=== PATIENT | female | born 1940 | race Caucasian/White ===

== ENCOUNTER 2018-04-30 12:57 | Emergency (ER) | payer MEDICARE, OTHER, SELFPAY ==
[2018-04-30 13:04] VITALS: BP 150/65; PULSE 58; RESP 16; TEMP 36.8; O2SAT 100; BMI 23.6
--- NOTE | 2018-04-30 13:08 | ED_ITS ---
HPI - Fall <SYED Fernández - Last Filed: 04/30/18 20:48> General Chief Complaint: Extremity Injury, Lower Stated Complaint: Ground level fall Time Seen by Provider: 04/30/18 13:07 Source: patient Mode of arrival: EMS Limitations: no limitations History of Present Illness HPI Narrative: 77-year-old female with history of high blood pressure and nonsmoker here for complaint of pain into her left ankle and right wrist/hand. She states that she was out walking earlier today when she rolled her left ankle causing pain and swelling to the left ankle causing her to fall she used her right hand to brace her fall she denies pain to the right wrist and hand. She denies any head injury. She reports that she has decreased ability to ambulate due to pain into the left ankle. Increased pain with weight-bearing and motion to the left ankle. She denies any other injuries or concerns at this point. Related Data Home Medications Medication Instructions Recorded Confirmed amlodipine [Norvasc] 5 mg PO QDAY #0 11/10/06 04/30/18 Vitamin B-12 1 tab PO Q DAY #0 11/07/11 04/30/18 aspirin 81 mg PO QDAY #0 11/07/11 04/30/18 multivitamin 1 tab PO DAILY #0 11/07/11 04/30/18 metoprolol tartrate 12.5 mg PO BID #0 10/21/17 04/30/18 Fish Oil 1 cap PO DAILY 04/30/18 04/30/18 flaxseed oil 1 cap PO DAILY 04/30/18 04/30/18 turmeric root extract 1 cap PO DAILY 04/30/18 04/30/18 Allergies Allergy/AdvReac Type Severity Reaction Status Date / Time Penicillins [PENICILLINS] Allergy Severe UNCONSCIOUS Unverified 12/03/17 11:48 doxycycline [DOXYCYCLINE] Allergy Intermediate JAUNDICED Unverified 12/03/17 11: 48 Review of Systems <SYED Fernández - Last Filed: 04/30/18 20:48> Constitutional Denies chills, Denies fever(s), Denies lethargy and Denies weakness ENT Ears, Nose, Mouth, and Throat: Denies change in voice, Denies neck pain and Denies sore throat Cardiovascular Denies chest pain, Denies irregular heart rhythm, Denies lightheadedness, Denies palpitations, Denies dyspnea, Denies dyspnea on exertion and Denies orthopnea Respiratory Denies cough, Denies dyspnea, Denies dyspnea on exertion and Denies wheezing Gastrointestinal Gastrointestinal: Denies abdominal pain, Denies change in bowel habits, Denies diarrhea, Denies nausea and Denies vomiting Genitourinary Denies hematuria, Denies flank pain, Denies urinary incontinence and Denies urinary urgency Musculoskeletal Denies neck pain Comments: Pain and swelling to left ankle. Pain into right wrist hand after ground level fall Integumentary/Breasts Denies pruritus, Denies erythema, Denies rash and Denies wounds Neurologic Denies confusion and Denies weakness Psychiatric Denies anxiety, Denies confusion, Denies depression, Denies homicidal ideation and Denies suicidal ideation Endocrine Denies palpitations Allergic/Immunologic Denies wheezing Exam <SYED Fernández - Last Filed: 04/30/18 20:48> Initial Vital Signs Initial Vital Signs: Vital Signs Temperature 98.3 F 04/30/18 13:04 Pulse Rate 58 L 04/30/18 13:04 Respiratory Rate 16 04/30/18 13:04 Blood Pressure 150/65 H 04/30/18 13:04 Pulse Oximetry 100 04/30/18 13:04 Const General: cooperative and well developed Nutritional Appearance: well nourished Orientation: alert, awake, oriented x3 and not confused [facility] Head: normal to inspection, normocephalic and atraumatic Mouth: oral mucosae normal and moist mucous membranes Eyes Conjunctivae: conjunctivae normal Sclera: sclerae normal Pupils: PERRL EOM: EOM intact bilaterally Neck Neck: normal visual inspection, trachea midline, No lymphadenopathy, No midline deformity and No JVD Lymphatic: No lymphedema Chest Chest: normal inspection of the chest Resp Effort & Inspection: normal respiratory effort, able to speak in complete sentences, no respiratory distress and no use of accessory muscles Auscultation: clear to auscultation bilaterally, no rales, no rhonchi and no wheezes Cardio Rate: regular rate Rhythm: regular rhythm Heart Sounds: no click, no gallops, no murmurs and no rubs Pulses: normal peripheral pulses GI Inspection: non-distended Palpation: soft, no hepatosplenomegaly, No guarding, No pulsatile mass and No tender Auscultation: normal bowel sounds Skin General: no rashes or lesions noted, No jaundice and No petechiae Neuro General: alert, oriented x3, gait normal and no focal motor deficits Speech: speech normal Extrem Other: Right wrist and hand no ecchymosis no swelling. No open lesions. Distal sensation is intact. Distal cap refill less than 2 sec. Distal range of motion is intact Left ankle with swelling over the lateral malleolus slight ecchymosis. No open lesions. Distal pulses are intact. Distal sensation is intact. Distal range of motion is intact <DO Ashley Hugo Last Filed: 05/05/18 07:32> Initial Vital Signs Initial Vital Signs: Vital Signs Temperature 98.3 F 04/30/18 13:04 Pulse Rate 58 L 04/30/18 13:04 Respiratory Rate 16 04/30/18 13:04 Blood Pressure 150/65 H 04/30/18 13:04 Pulse Oximetry 100 04/30/18 13:04 Course <SYED Fernádnez - Last Filed: 04/30/18 20:48> Orders Ordered: ED Orders 04/30/18 13:33 XR ankle LT min 3V Stat XR hand RT min 3V Stat XR wrist RT min 3V Stat Vital Signs - 8 hr 04/30/18 13:04 04/30/18 15:11 Temperature 98.3 F Pulse Rate 58 L 73 Respiratory Rate 16 16 Blood Pressure 150/65 H Blood Pressure [Left Arm] 142/78 H Pulse Oximetry 100 99 <DO Ashley Hugo Last Filed: 05/05/18 07:32> Orders Ordered: ED Orders 04/30/18 13:33 XR ankle LT min 3V Stat XR hand RT min 3V Stat XR wrist RT min 3V Stat Vital Signs - 8 hr 04/30/18 13:04 04/30/18 15:11 Temperature 98.3 F Pulse Rate 58 L 73 Respiratory Rate 16 16 Blood Pressure 150/65 H Blood Pressure [Left Arm] 142/78 H Pulse Oximetry 100 99 MDM - Fall <SYED Fernández Last Filed: 04/30/18 20:48> Imaging Data Left ankle: Radiologist's impression: [address] [address] XRay Report Signed Patient: Christianne Jones MR#: [id number] : 1940 Acct:[id number] Age/Sex: 77 / F Date of Service: 04/30/18 Loc: ED Accession Number: [id number] Procedure: XR ankle LT min 3V Ordering Provider: Anmol Jara PROCEDURE: XR ANKLE LT MIN 3V INDICATIONS: Pain to left ankle after ground level fall TECHNIQUE: 3 views of the ankle were acquired. COMPARISON: None. FINDINGS: Bones: No fractures or dislocations. Ankle mortise is normally aligned. No suspicious bony lesions. Soft tissues: No tibiotalar joint effusion. Achilles tendon appears normal. IMPRESSION: No trauma found. Dictated by: Abhi Estrada M.D. on 04/30/2018 at 14:14 Approved by: Abhi Estrada M.D. on 04/30/2018 at 14:15 Right hand : Radiologist's impression: [address] [address] XRay Report Signed Patient: Christianne Jones MR#: [id number] : 1940 Acct:[id number] Age/Sex: 77 / F Date of Service: 04/30/18 Loc: ED Accession Number: [id number] Procedure: XR hand RT min 3V Ordering Provider: Anmol Jara PROCEDURE: XR HAND RT MIN 3V INDICATIONS: Pain to right hand and wrist after ground level fall TECHNIQUE: 3 views of the hand(s) acquired. COMPARISON: None. FINDINGS: Bones: No fractures or dislocations. Carpal bones are normally aligned. No suspicious bony lesions. Soft tissues: No suspicious soft tissue calcifications. IMPRESSION: Mild arthritic change at the interphalangeal joints distally but no trauma found. Dictated by: Abhi Estrada M.D. on 04/30/2018 at 14:14 Approved by: Abhi Estrada M.D. on 04/30/2018 at 14:14 Right wrist: Radiologist's impression: [address] [address] XRay Report Signed Patient: Christianne Jones MR#: [id number] : 1940 Acct:[id number] Age/Sex: 77 / F Date of Service: 04/30/18 Loc: ED Accession Number: [id number] Procedure: XR wrist RT min 3V Ordering Provider: Amnol Jara PROCEDURE: XR WRIST RT MIN 3V INDICATIONS: Pain to right wrist and hand after ground level fall TECHNIQUE: 4 views of the wrist were acquired. COMPARISON: None. FINDINGS: Bones: No fractures or dislocations. No suspicious bony lesions. Scaphoid view: No trauma to the scaphoid is found. Soft tissues: No suspicious soft tissue calcifications. IMPRESSION: No osseous injury identified. Dictated by: Abhi Estrada M.D. on 04/30/2018 at 14:13 Approved by: Abhi Estrada M.D. on 04/30/2018 at 14:14 [facility] Narrative Medical decision making narrative: X-ray of the right wrist and hand were obtained was negative for any acute findings. X-ray of the left ankle was obtained and was also negative for any acute findings. Signs and symptoms presents as sprain to the left ankle and the right wrist. She is placed in a splint to both left ankle and the right wrist for comfort and support. Discussed ambulation with patient and offered a walker patient did not desire to use a walker she will rent to wheelchair for mobilization. Follow up with primary care provider next week for re-evaluation. [id number] ibuprofen as needed for any discomfort. Ice and elevation to painful areas to help with swelling. For any worsening symptoms return to the emergency room. Discharge Plan Departure Patient Disposition: Home Clinical Impression: Ankle sprain and strain, Right wrist sprain Discharge Date/Time: 04/30/18 15:15 Interventions: ED Discharge Assessment Last Done: 04/30/18 15:15 Instructions: DI for Wrist Sprain, DI for Ankle Sprain Activity Restrictions/Additional Instructions: X-rays of the right wrist and hand were obtained were negative for any fractures. X-rays of the left ankle was obtained and was also negative for any fractures. Signs and symptoms presents as sprain to the right wrist and to the left ankle. You have been placed in splints for comfort and support use as directed. Use [id number] ibuprofen as needed for discomfort. Ice and elevation to help with swelling to the painful areas. Follow up with primary care provider next week for re-evaluation. Wheelchair as needed for mobilization. Activity and weight-bearing as tolerated that is pain free. For any worsening symptoms return to the emergency room. Prescriptions: No Action amlodipine [Norvasc] 5 MG tablet 5 mg PO QDAY Qty: 0 RF: 0 multivitamin Tablet 1 tab PO DAILY Qty: 0 RF: 0 aspirin 81 MG tablet,delayed release (DR/EC) 81 mg PO QDAY Qty: 0 RF: 0 Vitamin B-12 1 tab PO Q DAY Qty: 0 RF: 0 metoprolol tartrate 25 MG tablet 12.5 mg PO BID Qty: 0 RF: 0 flaxseed oil 1,000 mg Capsule 1 cap PO DAILY RF: 0 Fish Oil 1 cap PO DAILY RF: 0 turmeric root extract 1 cap PO DAILY RF: 0 Referrals: Shaye Garcia MD [Primary Care Provider] - <Yasmin Mcdermott DO - Last Filed: 05/05/18 07:32> Cosign ED Attending Cosignature Attestation: I was immediately available in the department for consultation. Documentation has been reviewed. I agree with assessment and plan.
--- NOTE | 2018-04-30 13:33 | DI.RAD.S_ITS ---
PROCEDURE: XR HAND RT MIN 3V INDICATIONS: Pain to right hand and wrist after ground level fall TECHNIQUE: 3 views of the hand(s) acquired. COMPARISON: None. FINDINGS: Bones: No fractures or dislocations. Carpal bones are normally aligned. No suspicious bony lesions. Soft tissues: No suspicious soft tissue calcifications. IMPRESSION: Mild arthritic change at the interphalangeal joints distally but no trauma found. Dictated by: Abhi Estrada M.D. on 04/30/2018 at 14:14 Approved by: Abhi Estrada M.D. on 04/30/2018 at 14:14
--- NOTE | 2018-04-30 13:33 | DI.RAD.S_ITS ---
PROCEDURE: XR ANKLE LT MIN 3V INDICATIONS: Pain to left ankle after ground level fall TECHNIQUE: 3 views of the ankle were acquired. COMPARISON: None. FINDINGS: Bones: No fractures or dislocations. Ankle mortise is normally aligned. No suspicious bony lesions. Soft tissues: No tibiotalar joint effusion. Achilles tendon appears normal. IMPRESSION: No trauma found. Dictated by: Abhi Estrada M.D. on 04/30/2018 at 14:14 Approved by: Abhi Estrada M.D. on 04/30/2018 at 14:15
--- NOTE | 2018-04-30 13:33 | DI.RAD.S_ITS ---
PROCEDURE: XR WRIST RT MIN 3V INDICATIONS: Pain to right wrist and hand after ground level fall TECHNIQUE: 4 views of the wrist were acquired. COMPARISON: None. FINDINGS: Bones: No fractures or dislocations. No suspicious bony lesions. Scaphoid view: No trauma to the scaphoid is found. Soft tissues: No suspicious soft tissue calcifications. IMPRESSION: No osseous injury identified. Dictated by: Abhi Estrada M.D. on 04/30/2018 at 14:13 Approved by: Abhi Estrada M.D. on 04/30/2018 at 14:14
[2018-04-30 15:11] VITALS: BP 142/78; PULSE 73; RESP 16; O2SAT 99
== END 2018-04-30 15:15 | disposition home or self-care (01) ==
PROVIDERS: Emergency Provider Nurse Practitioner Family; Family Provider Family Medicine; PCP Family Medicine
DX: S93.402A Sprain of unspecified ligament of left ankle, initial encounter (principal); S63.501A Unspecified sprain of right wrist, initial encounter; W01.0XXA Fall on same level from slipping, tripping and stumbling without subsequent striking against object, initial encounter
CPT/HCPCS: 29280; 29540; 73110; 73130; 73610; 99283; 99284

== ENCOUNTER → 2018-11-27 13:02 | Outpatient (CLI) | payer MEDICARE, OTHER, SELFPAY ==
--- NOTE | 2018-11-27 | DI.MG.S_ITS ---
BILATERAL DIGITAL SCREENING MAMMOGRAM 3D/2D WITH CAD: 11/27/2018 CLINICAL: Routine screening. Comparison is made to exams dated: 10/23/2017 mammogram, 09/09/2016 mammogram, and 08/23/2014 mammogram - [facility]. There are scattered fibroglandular elements in both breasts. Current study was also evaluated with a Computer Aided Detection (CAD) system. There are benign calcifications in both breasts. There also is a benign biopsy clip in the left breast. No significant masses, calcifications, or other findings are seen in either breast. There has been no significant interval change. IMPRESSION: There is no mammographic evidence of malignancy. A 1 year screening mammogram is recommended. This exam was interpreted at Station ID: [id number]. NOTE: For mammograms, a report in lay terms will be sent to the patient. Approximately 15% of breast malignancies will not be visualized mammographically. In the management of a palpable breast mass, a negative mammogram must not discourage biopsy of a clinically suspicious lesion. Electronically Signed By: Cristopher rosales/rebeca:11/27/2018 14:18:16 letter sent: Normal Exam ACR BI-RADS Category 2: Benign Finding(s) 3342F
== END ==
PROVIDERS: Family Provider Family Medicine; PCP Family Medicine; Visit Provider Family Medicine
DX: Z12.31 Encounter for screening mammogram for malignant neoplasm of breast (principal)
CPT/HCPCS: 77063; 77067

== ENCOUNTER 2019-04-13 09:39 | Emergency (ER) | payer MEDICARE, OTHER, SELFPAY ==
[2019-04-13 09:50] VITALS: BP 162/72; PULSE 88; RESP 14; TEMP 36.7; O2SAT 98
--- NOTE | 2019-04-13 10:17 | DI.RAD.S_ITS ---
PROCEDURE: XR FINGER LT MIN 2V INDICATIONS: fall, bruising TECHNIQUE: AP hand, 2 views of the left fifth finger(s) acquired. COMPARISON: None. FINDINGS: Bones: No fractures or dislocations. No suspicious bony lesions. Soft tissues: No suspicious soft tissue calcifications. IMPRESSION: No fracture. No acute osseous lesion. If symptoms and/or clinical suspicion for pathology persists, further assessment with repeat radiographs (7-10 days) or advanced imaging (e.g. CT, MRI or bone scan) may be helpful. Dictated by: Aretha Douglas MD, PhD on 04/13/2019 at 10:51 Approved by: Aretha Douglas MD, PhD on 04/13/2019 at 10:53
--- NOTE | 2019-04-13 11:27 | ED.UPPEXIN ---
HPI - Extremity Injury (Upper) <SYED oLmax - Last Filed: 04/13/19 12:44> General Chief Complaint: Extremity Injury, Upper Stated Complaint: left hand 5th digit cut Time Seen by Provider: 04/13/19 10:12 Source: patient Mode of arrival: ambulatory Limitations: no limitations History of Present Illness HPI narrative: This is a 78-year-old female, previous smoker, presents to ED with her friend with chief complain of left 5th finger injury. She reports she fell on a deck on left hand last night. She reports her left finger pain, swelling, bruise and laceration. She reports right and is a dominant hand. She reports unsure of last tetanus immunization. She denies tingling or numbness to affected finger or hand. She denies cleaning well after the injury last night. She denies any other injury. Related Data Home Medications Medication Instructions Recorded Confirmed amlodipine [Norvasc] 5 mg PO DAILY #0 11/10/06 04/13/19 Vitamin B-12 1 tab PO Q DAY #0 11/07/11 04/30/18 aspirin 81 mg PO QDAY #0 11/07/11 04/30/18 multivitamin 1 tab PO DAILY #0 11/07/11 04/30/18 metoprolol tartrate 12.5 mg PO BID #0 10/21/17 04/13/19 Fish Oil 1 cap PO DAILY 04/30/18 04/30/18 flaxseed oil 1 cap PO DAILY 04/30/18 04/30/18 turmeric root extract 1 cap PO DAILY 04/30/18 04/30/18 levothyroxine 25 mcg PO DAILY 04/13/19 04/13/19 Previous Rx's Medication Instructions Recorded cephalexin [Keflex] 500 mg PO QID 7 Days #28 cap 04/13/19 Allergies Allergy/AdvReac Type Severity Reaction Status Date / Time Penicillins [PENICILLINS] Allergy Severe UNCONSCIOUS Verified 04/13/19 10:05 doxycycline [DOXYCYCLINE] Allergy Intermediate JAUNDICED Verified 04/13/19 10:05 Review of Systems <SYED Lomax Last Filed: 04/13/19 12:44> Review of Systems ROS Unobtainable: All systems reviewed & are unremarkable except as noted in HPI and below PFSH <SYED Lomax - Last Filed: 04/13/19 12:44> Medical History (Updated 04/13/19 @ 12:27 by SYED Lomax) HTN (hypertension) (Acute) Hypothyroid (Acute) Social History Smoking Status: Former smoker Social History Smoking Status: Former smoker Exam <SYED Lomax - Last Filed: 04/13/19 12:44> Narrative Exam Narrative: General appearance: well developed, well nourished, appears to be younger than her stated age in no acute distress. Head: normocephalic, atraumatic, no scalp lesions, non-tender. Eye: pupil equal, round. EOMI. Nose: nares patent. Oral: mucosa moist. Neck/Thyroid: neck supple, full range of motion, no visible masses. Skin: 1cm Laceration to L 5th distal finger in volar aspect and dorsal aspect. +erythema, mild warmth, swelling to the site and the edge of laceration not able to be approximate well. no suspicious rashes, lesions over visible areas. Warm and dry. Heart: no clubbing, no cyanosis, no edema. Lungs: Breathing even and unlabored. No stridor. No accessory muscles used. Chest: normal shape and expansion. Abdomen: non-obese, non-distended. Neurologic: alert and oriented. Cognitive exam, [employer] and PNS grossly intact on informal exam. Psych: good eye contact, normal affect. Initial Vital Signs Initial Vital Signs: Vital Signs Temperature 98.0 F 04/13/19 09:50 Pulse Rate 88 04/13/19 09:50 Respiratory Rate 14 04/13/19 09:50 Blood Pressure 162/72 H 04/13/19 09:50 Pulse Oximetry 98 04/13/19 09:50 Extrem Right upper extremity: normal to inspection Left upper extremity: hand (L 5th finger) Details: abnormal to inspection, normal capillary refill, neurosensory exam normal, tendon exam normal, tenderness, warmth, swelling and laceration Right lower extremity: normal to inspection Left lower extremity: normal to inspection <Yasmin Mcdermott DO - Last Filed: 04/14/19 08:13> Initial Vital Signs Initial Vital Signs: Vital Signs Temperature 98.0 F 04/13/19 09:50 Pulse Rate 88 04/13/19 09:50 Respiratory Rate 14 04/13/19 09:50 Blood Pressure 162/72 H 04/13/19 09:50 Pulse Oximetry 98 04/13/19 09:50 Course <[facility] - Last Filed: 04/13/19 12:44> Orders Ordered: Discontinued Medications Cephalexin HCl (Keflex) 500 mg PO NOW ONE Stop: 04/13/19 11:56 Last Admin: 04/13/19 12:12 Dose: 500 mg Diphtheria/Tetanus/Acell Pertussis (Adacel) 0.5 ml IM .ONCE ONE Stop: 04/13/19 11:53 Last Admin: 04/13/19 12:12 Dose: 0.5 ml Vital Signs - 8 hr 04/13/19 09:50 Temperature 98.0 F Pulse Rate 88 Respiratory Rate 14 Blood Pressure 162/72 H Pulse Oximetry 98 <Yasmin Mcdermott DO - Last Filed: 04/14/19 08:13> Orders Ordered: Discontinued Medications Cephalexin HCl (Keflex) 500 mg PO NOW ONE Stop: 04/13/19 11:56 Last Admin: 04/13/19 12:12 Dose: 500 mg Diphtheria/Tetanus/Acell Pertussis (Adacel) 0.5 ml IM .ONCE ONE Stop: 04/13/19 11:53 Last Admin: 04/13/19 12:12 Dose: 0.5 ml Vital Signs - 8 hr 04/13/19 09:50 Temperature 98.0 F Pulse Rate 88 Respiratory Rate 14 Blood Pressure 162/72 H Pulse Oximetry 98 MDM - Extremity Injury (Upper) <[facility] - Last Filed: 04/13/19 12:44> Differential Diagnosis Differential diagnosis: Likely finger sprain, dislocation of finger and other (fracture on finger, laceration on finger, wound infection) Medical Records Attestation: I reviewed the patient's medical records. Imaging Data XR-Finger LT: Radiologist's impression: [address] [address] XRay Report Signed Patient: Christianne Jones WMR#: [id number] : 1940Acct:[id number] Age/Sex: 78 / FDate of Service: 04/13/19 Loc: ED Accession Number: [id number] Procedure: XR finger LT min 2V Ordering Provider: Yasmin Mcdermott D.O. PROCEDURE: XR FINGER LT MIN 2V INDICATIONS: fall, bruising TECHNIQUE: AP hand, 2 views of the left fifth finger(s) acquired. COMPARISON: None. FINDINGS: Bones: No fractures or dislocations. No suspicious bony lesions. Soft tissues: No suspicious soft tissue calcifications. IMPRESSION: No fracture. No acute osseous lesion. If symptoms and/or clinical suspicion for pathology persists, further assessment with repeat radiographs (7-10 days) or advanced imaging (e.g. CT, MRI or bone scan) may be helpful. Dictated by: Aretha Douglas MD, PhD on 04/13/2019 at 10:51 Approved by: Aretha Douglas MD, PhD on 04/13/2019 at 10:53 [facility] Narrative Medical decision making narrative: This is a 78-year-old female who fell last night on a deck and landed on her left hand is/finger. She is here for evaluation of finger pain, swelling, redness, and laceration. She reports has not cleaned her wound well after the injury. She reports right hand is dominant hand and unsure of last tetanus immunization. X-ray test was done on affected finger without any acute findings. Patient was able to move her all fingers with against a resistant with some discomfort. The laceration on left 5th distal finger wound edges are not approximating well at this time due to swelling. The finger was soaked in Hibiclens mixed in water for 15 minutes. The laceration has been repaired with Steri-Strips. The patient was advised to monitor for signs and symptoms for infection. She was medicated with 1st dose of Keflex in ED without problems and prescribed 7 additional days. The patient was advised to follow with her primary care physician for re-evaluation if the pain persists and advised to keep the wound clean and dry until it heals. All questions were answered and patient agrees with plan of care. Discharge Plan Departure Patient Disposition: Home Clinical Impression: Finger laceration Qualifiers: Encounter type: initial encounter Finger: little finger Damage to nail status: unspecified Foreign body presence: without foreign body Laterality: left Qualified Code(s): S61.217A - Laceration without foreign body of left little finger without damage to nail, initial encounter Discharge Date/Time: 04/13/19 12:44 Interventions: ED Discharge Assessment Last Done: 04/13/19 12:40 Instructions: DI for Laceration Repair -- Finger Activity Restrictions/Additional Instructions: You have been diagnosed with [L 5th finger injury from falling. Your x-ray test does not show obvious fracture at this time. The laceration on your finger has been repaired with Steri-Strips]. What to do: *Take your medications as directed. You can take [id number] Tylenol and/or Motrin as needed for pain and swelling. Please complete a course of antibiotic medication unless this gives shoe on allergy reaction. *Follow up with your primary care provider in 2-3 days, call for an appointment. Let them know you were seen in the ED and that we asked you to be seen in follow up. *Return to ED if you have any new, worsening, or concerning symptoms, such as [severe pain, increasing swelling/redness, pus-like discharge, fever, warmth to touch, chest pain, breathing difficulty, unable to tolerate fluids, any acute concerns]. Prescriptions: New cephalexin [Keflex] 500 mg capsule 500 mg PO QID 7 Days Qty: 28 RF: 0 No Action amlodipine [Norvasc] 5 MG tablet 5 mg PO DAILY Qty: 0 RF: 0 multivitamin Tablet 1 tab PO DAILY Qty: 0 RF: 0 aspirin 81 MG tablet,delayed release (DR/EC) 81 mg PO QDAY Qty: 0 RF: 0 Vitamin B-12 1 tab PO Q DAY Qty: 0 RF: 0 metoprolol tartrate 25 MG tablet 12.5 mg PO BID Qty: 0 RF: 0 flaxseed oil 1,000 mg Capsule 1 cap PO DAILY RF: 0 Fish Oil 1 cap PO DAILY RF: 0 turmeric root extract 1 cap PO DAILY RF: 0 levothyroxine 25 mcg tablet 25 mcg PO DAILY RF: 0 Referrals: Shaye Garcia MD [Primary Care Provider] - <Yasmin Mcdermott DO - Last Filed: 04/14/19 08:13> Cosign ED Attending Satishature Attestation: I was immediately available in the department for consultation. Documentation has been reviewed. I agree with assessment and plan.
--- NOTE | 2019-04-13 11:42 | ED_ITS ---
HPI - Extremity Injury (Upper) <SYED Lomax - Last Filed: 04/13/19 12:44> General Chief Complaint: Extremity Injury, Upper Stated Complaint: left hand 5th digit cut Time Seen by Provider: 04/13/19 10:12 Source: patient Mode of arrival: ambulatory Limitations: no limitations History of Present Illness HPI narrative: This is a 78-year-old female, previous smoker, presents to ED wi th her friend with chief complain of left 5th finger injury. She reports she fell on a deck on left hand last night. She reports her left finger pain, swelling, bruise and laceration. She reports right and is a dominant hand. She reports unsure of last tetanus immunization. She denies tingling or numbness to affected finger or hand. She denies cleaning well after the injury last night. She denies any other injury. Related Data Home Medications Medication Instructions Recorded Confirmed amlodipine [Norvasc] 5 mg PO DAILY #0 11/10/06 04/13/19 Vitamin B-12 1 tab PO Q DAY #0 11/07/11 04/30/18 aspirin 81 mg PO QDAY #0 11/07/11 04/30/18 multivitamin 1 tab PO DAILY #0 11/07/11 04/30/18 metoprolol tartrate 12.5 mg PO BID #0 10/21/17 04/13/19 Fish Oil 1 cap PO DAILY 04/30/18 04/30/18 flaxseed oil 1 cap PO DAILY 04/30/18 04/30/18 turmeric root extract 1 cap PO DAILY 04/30/18 04/30/18 levothyroxine 25 mcg PO DAILY 04/13/19 04/13/19 Previous Rx's Medication Instructions Recorded cephalexin [Keflex] 500 mg PO QID 7 Days #28 cap 04/13/19 Allergies Allergy/AdvReac Type Severity Reaction Status Date / Time Penicillins [PENICILLINS] Allergy Severe UNCONSCIOUS Verified 04/13/19 10:05 doxycycline [DOXYCYCLINE] Allergy Intermediate JAUNDICED Verified 04/13/19 10:05 Review of Systems <SYED Lomax - Last Filed: 04/13/19 12:44> Review of Systems ROS Unobtainable: All systems reviewed & are unremarkable except as noted in HPI and below PFSH <SYED Lomax - Last Filed: 04/13/19 12:44> Medical History (Updated 04/13/19 @ 12:27 by SYED Lomax) HTN (hypertension) (Acute) Hypothyroid (Acute) Social History Smoking Status: Former smoker Social History Smoking Status: Former smoker Exam <SYED Lomax - Last Filed: 04/13/19 12:44> Narrative Exam Narrative: General appearance: well developed, well nourished, appears to be younger than her stated age in no acute distress. Head: normocephalic, atraumatic, no scalp lesions, non-tender. Eye: pupil equal, round. EOMI. Nose: nares patent. Oral: mucosa moist. Neck/Thyroid: neck supple, full range of motion, no visible masses. Skin: 1cm Laceration to L 5th distal finger in volar aspect and dorsal aspect. +erythema, mild warmth, swelling to the site and the edge of laceration not able to be approximate well. no suspicious rashes, lesions over visible areas. Warm and dry. Heart: no clubbing, no cyanosis, no edema. Lungs: Breathing even and unlabored. No stridor. No accessory muscles used. Chest: normal shape and expansion. Abdomen: non-obese, non-distended. Neurologic: alert and oriented. Cognitive exam, LANDMEN and PNS grossly intact on informal exam. Psych: good eye contact, normal affect. Initial Vital Signs Initial Vital Signs: Vital Signs Temperature 98.0 F 04/13/19 09:50 Pulse Rate 88 04/13/19 09:50 Respiratory Rate 14 04/13/19 09:50 Blood Pressure 162/72 H 04/13/19 09:50 Pulse Oximetry 98 04/13/19 09:50 Extrem Right upper extremity: normal to inspection Left upper extremity: hand (L 5th finger) Details: abnormal to inspection, normal capillary refill, neurosensory exam normal, tendon exam normal, tenderness, warmth, swelling and laceration Right lower extremity: normal to inspection Left lower extremity: normal to inspection <Yasmin Mcdermott DO - Last Filed: 04/14/19 08:13> Initial Vital Signs Initial Vital Signs: Vital Signs Temperature 98.0 F 04/13/19 09:50 Pulse Rate 88 04/13/19 09:50 Respiratory Rate 14 04/13/19 09:50 Blood Pressure 162/72 H 04/13/19 09:50 Pulse Oximetry 98 04/13/19 09:50 Course <[facility] - Last Filed: 04/13/19 12:44> Orders Ordered: Discontinued Medications Cephalexin HCl (Keflex) 500 mg PO NOW ONE Stop: 04/13/19 11:56 Last Admin: 04/13/19 12:12 Dose: 500 mg Diphtheria/Tetanus/Acell Pertussis (Adacel) 0.5 ml IM .ONCE ONE Stop: 04/13/19 11:53 Last Admin: 04/13/19 12:12 Dose: 0.5 ml Vital Signs - 8 hr 04/13/19 09:50 Temperature 98.0 F Pulse Rate 88 Respiratory Rate 14 Blood Pressure 162/72 H Pulse Oximetry 98 <Yasmin Mcdermott DO - Last Filed: 04/14/19 08:13> Orders Ordered: Discontinued Medications Cephalexin HCl (Keflex) 500 mg PO NOW ONE Stop: 04/13/19 11:56 Last Admin: 04/13/19 12:12 Dose: 500 mg Diphtheria/Tetanus/Acell Pertussis (Adacel) 0.5 ml IM .ONCE ONE Stop: 04/13/19 11:53 Last Admin: 04/13/19 12:12 Dose: 0.5 ml Vital Signs - 8 hr 04/13/19 09:50 Temperature 98.0 F Pulse Rate 88 Respiratory Rate 14 Blood Pressure 162/72 H Pulse Oximetry 98 MDM - Extremity Injury (Upper) <[facility] - Last Filed: 04/13/19 12:44> Differential Diagnosis Differential diagnosis: Likely finger sprain, dislocation of finger and other (fracture on finger, laceration on finger, wound infection) Medical Records Attestation: I reviewed the patient's medical records. Imaging Data XR-Finger LT: Radiologist's impression: [address] [address] XRay Report Signed Patient: Christianne Jones WMR#: [id number] : 1940Acct:[id number] Age/Sex: 78 / FDate of Service: 04/13/19 Loc: ED Accession Number: [id number] Procedure: XR finger LT min 2V Ordering Provider: Yasmin Mcdermott D.O. PROCEDURE: XR FINGER LT MIN 2V INDICATIONS: fall, bruising TECHNIQUE: AP hand, 2 views of the left fifth finger(s) acquired. COMPARISON: None. FINDINGS: Bones: No fractures or dislocations. No suspicious bony lesions. Soft tissues: No suspicious soft tissue calcifications. IMPRESSION: No fracture. No acute osseous lesion. If symptoms and/or clinical suspicion for pathology persists, further assessment with repeat radiographs (7-10 days) or advanced imaging (e.g. CT, MRI or bone scan) may be helpful. Dictated by: Aretha Douglas MD, PhD on 04/13/2019 at 10:51 Approved by: Aretha Douglas MD, PhD on 04/13/2019 at 10:53 [facility] Narrative Medical decision making narrative: This is a 78-year-old female who fell last ni ght on a deck and landed on her left hand is/finger. She is here for evaluation of finger pain, swelling, redness, and laceration. She reports has not cleaned her wound well after the injury. She reports right hand is dominant hand and unsure of last tetanus immunization. X-ray test was done on affected finger without any acute findings. Patient was able to move her all fingers with against a resistant with some discomfort. The laceration on left 5th distal finger wound edges are not approximating well at this time due to swelling. The finger was soaked in Hibiclens mixed in water for 15 minutes. The laceration has been repaired with Steri-Strips. The patient was advised to monitor for signs and symptoms for infection. She was medicated with 1st dose of Keflex in ED without problems and prescribed 7 additional days. The patient was advised to follow with her primary care physician for re-evaluation if the pain persists and advised to keep the wound clean and dry until it heals. All questions were answered and patient agrees with plan of care. Discharge Plan Departure Patient Disposition: Home Clinical Impression: Finger laceration Qualifiers: Encounter type: initial encounter Finger: little finger Damage to nail status: unspecified Foreign body presence: without foreign body Laterality: left Qualified Code(s): S61.217A - Laceration without foreign body of left little finger without damage to nail, initial encounter Discharge Date/Time: 04/13/19 12:44 Interventions: ED Discharge Assessment Last Done: 04/13/19 12:40 Instructions: DI for Laceration Repair -- Finger Activity Restrictions/Additional Instructions: You have been diagnosed with [L 5th finger injury from falling. Your x-ray test does not show obvious fracture at this time. The laceration on your finger has been repaired with Steri-Strips]. What to do: *Take your medications as directed. You can take [id number] Tylenol and/or Motrin as needed for pain and swelling. Please complete a course of antibiotic medication unless this gives shoe on allergy reaction. *Follow up with your primary care provider in 2-3 days, call for an appointment. Let them know you were seen in the ED and that we asked you to be seen in follow up. *Return to ED if you have any new, worsening, or concerning symptoms, such as [severe pain, increasing swelling/redness, pus-like discharge, fever, warmth to touch, chest pain, breathing difficulty, unable to tolerate fluids, any acute concerns]. Prescriptions: New cephalexin [Keflex] 500 mg capsule 500 mg PO QID 7 Days Qty: 28 RF: 0 No Action amlodipine [Norvasc] 5 MG tablet 5 mg PO DAILY Qty: 0 RF: 0 multivitamin Tablet 1 tab PO DAILY Qty: 0 RF: 0 aspirin 81 MG tablet,delayed release (DR/EC) 81 mg PO QDAY Qty: 0 RF: 0 Vitamin B-12 1 tab PO Q DAY Qty: 0 RF: 0 metoprolol tartrate 25 MG tablet 12.5 mg PO BID Qty: 0 RF: 0 flaxseed oil 1,000 mg Capsule 1 cap PO DAILY RF: 0 Fish Oil 1 cap PO DAILY RF: 0 turmeric root extract 1 cap PO DAILY RF: 0 levothyroxine 25 mcg tablet 25 mcg PO DAILY RF: 0 Referrals: Shaye Garcia MD [Primary Care Provider] - <Yasmin Mcdermott DO - Last Filed: 04/14/19 08:13> Cosign ED Attending Satishature Attestation: I was immediately available in the department for consultation. Documentation has been reviewed. I agree with assessment and plan.
[2019-04-13] MEDS: TET,DIPH,PERTUSS(ACELL),VAC/PF 0.5 ML SYRINGE IM (12:12)
[2019-04-13] MEDS: cephALEXin 250 MG CAPSULE 500 MG PO (12:12)
--- NOTE | 2019-04-13 12:39 | PC.NURSE ---
clarisa treated and dressed wound
== END 2019-04-13 12:44 | disposition home or self-care (01) ==
PROVIDERS: Emergency Provider Nurse Practitioner Family; Family Provider Family Medicine; PCP Family Medicine
DX: S61.217A Laceration without foreign body of left little finger without damage to nail, initial encounter (principal); Z23 Encounter for immunization
CPT/HCPCS: 73140; 90471; 99283; 90715

== ENCOUNTER → 2019-08-04 13:08 | Outpatient (CLI) | payer MEDICARE, OTHER, SELFPAY ==
--- NOTE | 2019-08-04 | DI.US.S_ITS ---
PROCEDURE: US PELVIC COMPLETE INDICATIONS: Osteopenia/Pelvic pain TECHNIQUE: Real-time scanning was performed of the pelvic organs, with image documentation. Additional endovaginal scanning was necessary due to incomplete visualization of the adnexal and endometrial structures by transabdominal scanning. COMPARISON: [facility], , PELVIC COMPLETE, 04/19/2015, 9:27. FINDINGS: Transabdominal scanning: Limited scanning through the kidneys shows no hydronephrosis. No pathologic free abdominal or pelvic fluid. Incidental note is made of a 5 cm simple appearing right renal cortical cyst. Endovaginal scanning: Uterus: Uterus is normal in size at 3.2 x 4.8 x 6.8 cm. The endometrium measures 6.6 mm in combined thickness. 2 small cysts appear present within the endometrial lining, which appears mildly heterogeneous, and these measure 4 mm and 5 mm respectively. There is a midline anterior intramural 1.4 cm fibroid and a left-sided posterior intramural 6 mm calcification Ovaries: The right ovary measures 2.5 x 1.2 x 1.2 cm and appears normal. The left ovary could not be seen. IMPRESSION: Mild heterogeneity of the endometrial lining, too small endometrial cysts are incidentally noted measuring 4 mm and 5 mm respectively. A small uterine fibroid measures only 1.4 cm in maximal dimension. Note is made of a single 6 mm calcification within the myometrium also. Nonvisualization of the left ovary, normal appearing right ovary. Dictated by: Abhi Estrada M.D. on 08/04/2019 at 14:57 Approved by: Abhi Estrada M.D. on 08/04/2019 at 15:00
== END ==
PROVIDERS: Family Provider Family Medicine; PCP Family Medicine; Visit Provider Family Medicine
DX: R10.2 Pelvic and perineal pain (principal); D25.1 Intramural leiomyoma of uterus; M85.852 Other specified disorders of bone density and structure, left thigh; Z78.0 Asymptomatic menopausal state; N85.8 Other specified noninflammatory disorders of uterus; N28.1 Cyst of kidney, acquired
CPT/HCPCS: 76830; 76856; 77080

== ENCOUNTER → 2019-08-09 11:12 | Outpatient (CLI) | payer MEDICARE, OTHER, SELFPAY ==
--- NOTE | 2019-08-09 | DI.US.S_ITS ---
PROCEDURE: US THYROID INDICATIONS: THYROID NODULE TECHNIQUE: Real-time scanning was performed of the thyroid gland, with image documentation. COMPARISON: [facility], US, THYROID, 06/17/2017, 10:03. FINDINGS: Right: Thyroid lobe measures 4.1 x 1.1 x 1.4 cm, and is homogeneous in echotexture. Left: Thyroid lobe measures 3.7 x 1.2 x 1.2 cm, and is homogenous in echotexture. Isthmus: 4 mm thick. Nodule number: 1 Location: Lateral right mid lobe Size: 0.8 x 0.5 x 0.5 cm. previously 0.7 x 0.4 x 0.6 Composition: Solid Echogenicity: Hypoechoic Shape: wider than tall. Margins: Smooth Echogenic foci: None Total points: 4 ACR TI-RADS category: 4, moderately suspicious IMPRESSION: 1. Stable TI-RADS 4 right thyroid nodule measuring 8 mm. Followup in one year is recommended for surveillance. ACR TI-RADS definitions and recommendations: TI-RADS 1 (benign): 0 points. FNA not needed. TI-RADS 2 (not suspicious): 2 points. FNA not needed. TI-RADS 3 (mildly suspicious): 3 points. * FNA if 2.5 cm or larger, follow up if 1.5 cm or larger (at 1, 3, and 5 years). TI-RADS 4 (moderately suspicious): 4-6 points. * FNA if 1.5 cm or larger, follow up if 1 cm or larger (at 1, 2, 3, and 5 years). TI-RADS 5 (highly suspicious): 7 points or more. * FNA if 1 cm or larger, follow up if 0.5 cm or larger (every year for 5 years). Dictated by: Jasmyn Calderon M.D. on 08/09/2019 at 18:18 Approved by: Jasmyn Calderon M.D. on 08/09/2019 at 18:23
== END ==
PROVIDERS: Family Provider Family Medicine; PCP Family Medicine; Visit Provider Family Medicine
DX: E04.1 Nontoxic single thyroid nodule (principal)
CPT/HCPCS: 76536

== ENCOUNTER → 2020-04-14 15:12 | Outpatient (CLI) | payer MEDICARE, OTHER, SELFPAY ==
--- NOTE | 2020-04-14 15:14 | DI.MG.S_ITS ---
BILATERAL DIGITAL SCREENING MAMMOGRAM 3D/2D WITH CAD: 04/14/2020 CLINICAL: Routine screening. Comparison is made to exams dated: 11/27/2018 mammogram, 10/23/2017 mammogram, and 09/09/2016 mammogram - [facility]. There are scattered fibroglandular elements in both breasts. Current study was also evaluated with a Computer Aided Detection (CAD) system. There are benign calcifications in both breasts. There also is a biopsy clip in the left breast. No significant masses, calcifications, or other findings are seen in either breast. There has been no significant interval change. IMPRESSION: BENIGN There is no mammographic evidence of malignancy. A 1 year screening mammogram is recommended. This exam was interpreted at Station ID: [id number]. NOTE: For mammograms, a report in lay terms will be sent to the patient. Approximately 15% of breast malignancies will not be visualized mammographically. In the management of a palpable breast mass, a negative mammogram must not discourage biopsy of a clinically suspicious lesion. Electronically Signed By: Compa Pickens M.D., jr/rebeca:04/14/2020 17:27:06 letter sent: Normal Exam ACR BI-RADS Category 2: Benign Finding(s) 3342F
== END ==
PROVIDERS: Family Provider Family Medicine; PCP Family Medicine; Referring Provider Family Medicine; Visit Provider Family Medicine
DX: Z12.31 Encounter for screening mammogram for malignant neoplasm of breast (principal)
CPT/HCPCS: 77063; 77067

== ENCOUNTER → 2020-12-28 11:00 | Outpatient (CLI) | payer MEDICARE, OTHER, SELFPAY ==
--- NOTE | 2020-12-28 11:01 | DI.US.S_ITS ---
PROCEDURE: US PELVIC COMPLETE INDICATIONS: Postmenopausal bleeding TECHNIQUE: Real-time scanning was performed of the pelvic organs, with image documentation. Additional endovaginal scanning was necessary due to incomplete visualization of the adnexal and endometrial structures by transabdominal scanning. COMPARISON: [facility], , US PELVIC COMPLETE, 08/04/2019, 13:42. FINDINGS: Uterus: Uterus is normal in size at 7.4 x 5.4 x 3.4 cm. The endometrium measures 6.8 mm in combined thickness. Microcystic changes of the endometrial complex noted. 1.5 cm intramural fibroid similar to prior examination. Ovaries: Left ovary not visualized. Right ovary is grossly normal measuring 4.1 x 1.4 x 1.3 cm. Other: No pathologic free abdominal or pelvic fluid. IMPRESSION: 1. Abnormal appearance of the endometrial complex which is thickened with microcystic change which appears similar to prior examination. Endometrial neoplastic process cannot be excluded and close clinical correlation is recommended. 2. No change in 15 mm intramural fibroid. 3. Normal appearance of the right ovary and the left ovary is not well seen. Dictated by: Kartik Medley [facility] Interpreted: Aretha Douglas MD on 12/28/2020 at 17:19 Transcribed by: ANDRZEJ on 12/28/2020 at 17:23 Approved by: Aretha Douglas MD, PhD on 12/28/2020 at 18:55
== END ==
PROVIDERS: Family Provider Family Medicine; PCP Family Medicine; Referring Provider Family Medicine; Visit Provider Family Medicine
DX: N95.0 Postmenopausal bleeding (principal); R93.89 Abnormal findings on diagnostic imaging of other specified body structures; D25.1 Intramural leiomyoma of uterus
CPT/HCPCS: 76830; 76856

== ENCOUNTER 2021-02-13 07:23 | Day surgery (SDC) | payer MEDICARE, OTHER, SELFPAY ==
[2021-02-12 15:00] VITALS: BMI 22.6
--- NOTE | 2021-02-12 18:22 | SUR.PREOP ---
attempted to call pt in regards to medication question prior to her procedure sched for 02/13. Mailbox full and unable to leave message
[2021-02-13] VITALS (7 sets, daily range): BP systolic 130–156; BP diastolic 59–79; PULSE 57–69; RESP 10–16; TEMP 36.6–36.9; O2SAT 94–97; BMI 22.6
--- NOTE | 2021-02-13 | PATH_ITS ---
[facility] Accession Number: [id number] . 01 Material submitted: . endometrium - ENDOMETRIAL POLYP . 02 Diagnosis: Endometrial Polyp: Polypoid portions of endometrial tissue with features of cystic atrophy; negative for glandular hyperplasia, cytologic atypia, or malignancy. MRV 02/15/2021 1032 Local . 02 Electronically signed: . Karlie Sanchez MD, Pathologist NPI- [id number] . 01 Gross description: . ENDOMETRIAL POLYP: Received in formalin are minute fragments of mucoid and hemorrhagic material measuring 1.5 x 1.0 x 0.3 cm in aggregate. Submitted in toto in 1 cassette. /LIVE 02/14/2021 0631 Local . 02 Pathologist provided ICD-10: N95.0, N85.00, D25.9 . 02 CPT . 187393 Performed at: 01 [facility] [address] [facility], [place], [place] [id number] MD Jonel Yang MD Phone: [phone] Performed at: 02 [facility] [address] [place], [place] [id number] MD Stephanie Wen MD Phone: [phone]
--- NOTE | 2021-02-13 06:43 | PM.GYNOP.1 ---
Operative Date/Time/Diagnoses Date of procedure: 02/13/21 Time of procedure: 08:57 Pre-op diagnosis: Postmenopausal bleeding Endometrial hyperplasia Post-op diagnosis: same Procedure & Clinicians Procedure: Procedures Operation Date: 02/13/21 08:15 <No data on this case meets the specified criteria> Indications: Postmenopausal bleeding Endometrial hyperplasia Surgeon: Krista Price Anesthesia Type: General (LMA) Operative Notes Findings: 6 week size anteverted uterus Both fallopian tube ostia observed Posteriorly towards the lower uterine segment there was a flat polyp Closure Type: not applicable Specimen(s): endometrial polyp Estimated blood loss (mL): 5 Blood products transfused: none Procedure in detail: After informed consent was obtained, the patient was taken to the operating room where she was placed in the dorsal supine position. After adequate LMA general anesthesia was achieved, she was placed in the dorsal lithotomy position, and prepped and draped in the usual sterile fashion. A time-out was performed. A bivalve speculum was placed into the vagina and the anterior lip of the cervix was grasped with a single-tooth tenaculum. The cervical os was sequentially dilated to the # 8 Hegar dilator. The hysteroscope passed easily into the endometrial cavity. Both fallopian tube ostia were observed. There was a flat polyp on the posterior lower uterine segment. The hysteroscope was removed from the uterus. The cervix was dilated to the # 9 Hegar dilator. The resectoscope passed easily into the endometrial cavity. With settings at 80 cut and 60 coag, polyp was resected in 3 pieces. Hemostasis was achieved. The resectoscope was removed from the uterus. The single-tooth tenaculum was removed from the anterior lip of the cervix. The bivalve speculum was removed from the vagina. Sponge, lap, and instrument counts were correct x2. The patient tolerated the procedure well, and was taken to PACU in stable condition. Complications: none Post-operative Condition: stable Disposition: PACU Plan for aftercare: Home after recovery
--- NOTE | 2021-02-13 06:43 | PM.HP.1 ---
History of Present Illness History of Present Illness Date Patient Seen: 02/13/21 Time Patient Seen: 08:18 Chief complaint: SDC Narrative: Patient is an 80-year-old 2 para 2 with postmenopausal bleeding and endometrial hyperplasia. She presents for a D&C hysteroscopy. Patient History Medical History (Updated 02/01/21 @ 19:46 by Beatrice Marie) Asthma Chicken pox HTN (hypertension) Hypothyroid Measles Mumps Surgical History (Updated 02/01/21 @ 19:46 by Beatrice Marie) Anesthesia H/O hemorrhoidectomy (~1970) S/P wisdom tooth extraction Family & Social History Family History (Updated 02/01/21 @ 19:53 by Beatrice Marie) Father Cancer Mother Cancer Brother Cancer Tobacco & Substance use: Smoking Status Former smoker alcohol intake current alcohol intake frequency 0-2 drinks per day Substance Use Type does not use Meds Home Medications and Allergies Home Medications Medication Instructions Recorded Confirmed Type amlodipine [Norvasc] 5 mg PO DAILY #0 11/10/06 02/13/21 History Vitamin B-12 1 tab PO Q DAY #0 11/07/11 02/13/21 History aspirin 81 mg PO QDAY #0 11/07/11 02/13/21 History multivitamin 1 tab PO DAILY #0 11/07/11 02/13/21 History metoprolol tartrate 12.5 mg PO BID #0 10/21/17 02/13/21 History Fish Oil 1 cap PO DAILY 04/30/18 02/13/21 History flaxseed oil 1 cap PO DAILY 04/30/18 02/13/21 History turmeric root extract 2 cap PO DAILY 04/30/18 02/13/21 History levothyroxine 25 mcg PO DAILY 04/13/19 02/13/21 History atorvastatin 10 mg PO DAILY 02/13/21 02/13/21 History Allergies Allergy/AdvReac Type Severity Reaction Status Date / Time Penicillins [PENICILLINS] Allergy Severe UNCONSCIOUS Verified 01/11/21 09:22 doxycycline [DOXYCYCLINE] Allergy Intermediate JAUNDICED Verified 01/11/21 09:22 Exam Vital Signs (past 8 hours): HEENT: No thyromegaly, no anterior cervical or supraclavicular lymphadenopathy. Lungs:Clear to auscultation bilaterally, no wheezes. Cardiovascular: Regular rate and rhythm, no murmurs, rubs, or gallops. Abdomen: No scars. No hepatosplenomegaly. No masses palpable. External genitalia: Normal Vagina: Normal Cervix: Normal Bimanual exam: 6 Week size uterus. Mobile. Assessment & Plan Assessment & Plan narrative: Assessment 80-year-old 2 para 2 with postmenopausal bleeding and endometrial hyperplasia Plan: D&C hysteroscopy The risks, benefits, and alternatives to the procedure were explained to the patient. The risks including bleeding, infection, and uterine perforation. She understands these risks and agrees to proceed. A full par Q was held and consent form was signed.
[2021-02-13 07:50] LABS: COVID19 -Nasal RAPID Negative (Negative)
[2021-02-13] MEDS: LACTATED RINGERS 1,000 ML 100 ML IV (07:53)
--- NOTE | 2021-02-13 08:18 | PM.PREOP ---
Pre-operative Note COVID-19 COVID-19 status: Negative Result date/Date tested (Pos, Neg/Pending): 02/13/21 Interval Note History & Physical reviewed/Exam performed by Physician: Yes Changes to H&P: No H&P completed within 30 days and has changed as indicated here:: 02/13/21
--- NOTE | 2021-02-13 08:33 | SUR.OPER ---
Lithotomy on padded OR bed, head on pillow, arms secured on padded arm boards at <90 degrees abduction. Legs secured in padded yellow fins stirrups.
== END 2021-02-13 09:40 | disposition home or self-care (01) ==
PROVIDERS: Family Provider Family Medicine; PCP Family Medicine; Referring Provider Obstetrics & Gynecology; Visit Provider Obstetrics & Gynecology
PROC: 0UDB8ZZ Extraction of Endometrium, Via Natural or Artificial Opening Endoscopic (ICD-10-PCS; CPT 58558; principal; 2021-02-13 08:15)
DX: N84.0 Polyp of corpus uteri (principal); N95.0 Postmenopausal bleeding; N85.00 Endometrial hyperplasia, unspecified; I10 Essential (primary) hypertension; E78.5 Hyperlipidemia, unspecified; J45.909 Unspecified asthma, uncomplicated
CPT/HCPCS: 58558; 87635; J2405; J2704; J3010

== ENCOUNTER → 2021-05-05 10:38 | Outpatient (CLI) | payer MEDICARE, OTHER, SELFPAY ==
--- NOTE | 2021-05-05 10:39 | DI.MG.S_ITS ---
BILATERAL DIGITAL SCREENING MAMMOGRAM 3D/2D WITH CAD: 05/05/2021 CLINICAL: Routine screening. Comparison is made to exams dated: 04/14/2020 mammogram, 11/27/2018 mammogram, and 10/23/2017 mammogram - [facility]. There are scattered fibroglandular elements in both breasts. Current study was also evaluated with a Computer Aided Detection (CAD) system. There is a new 0.4 cm oval equal density asymmetry in the right breast posterior depth superior region seen on the mediolateral oblique view only. No other significant masses, calcifications, or other findings are seen in either breast. IMPRESSION: INCOMPLETE: NEEDS ADDITIONAL IMAGING EVALUATION The new 0.4 cm oval equal density asymmetry in the right breast resembles a cyst or a lymph node and is indeterminate. Additional views with possible ultrasound are recommended. This exam was interpreted at Station ID: [id number]. NOTE: For mammograms, a report in lay terms will be sent to the patient. Approximately 15% of breast malignancies will not be visualized mammographically. In the management of a palpable breast mass, a negative mammogram must not discourage biopsy of a clinically suspicious lesion. Electronically Signed By: Cristopher rosales/rebeca:05/07/2021 07:51:43 letter sent: Additional Imaging Needed ACR BI-RADS Category 0: Incomplete [id number]
== END ==
PROVIDERS: Family Provider Family Medicine; PCP Family Medicine; Referring Provider Family Medicine; Visit Provider Family Medicine
DX: Z12.31 Encounter for screening mammogram for malignant neoplasm of breast (principal)
CPT/HCPCS: 77063; 77067

== ENCOUNTER → 2021-05-28 08:35 | Outpatient (CLI) | payer MEDICARE, OTHER, SELFPAY ==
--- NOTE | 2021-05-28 | DI.MG.S_ITS ---
UNILATERAL RIGHT DIGITAL DIAGNOSTIC MAMMOGRAM 3D/2D WITH ADDITIONAL VIEWS: 05/28/2021 CLINICAL: Additional evaluation requested from prior study. Comparison is made to exams dated: 05/05/2021 mammogram, 04/14/2020 mammogram, and 11/27/2018 mammogram - [facility]. There are scattered fibroglandular elements in right breast. There is a new 0.4 cm oval equal density asymmetry in the right breast posterior depth superior region seen on the mediolateral oblique view only. No other significant masses or calcifications are seen in the breast. IMPRESSION: BENIGN The new 0.4 cm oval equal density asymmetry in the right breast is consistent with a skin lesion and is benign. There is no mammographic evidence of malignancy. A 1 year screening mammogram is recommended. This exam was interpreted at Station ID: [id number]. NOTE: For mammograms, a report in lay terms will be sent to the patient. Approximately 15% of breast malignancies will not be visualized mammographically. In the management of a palpable breast mass, a negative mammogram must not discourage biopsy of a clinically suspicious lesion. Electronically Signed By: Compa Pickens M.D., jr/rebeca:05/28/2021 11:15:44 letter sent: Normal Exam ACR BI-RADS Category 2: Benign Finding(s) 3342F
== END ==
PROVIDERS: Family Provider Family Medicine; PCP Family Medicine; Referring Provider Family Medicine; Visit Provider Family Medicine
DX: R92.8 Other abnormal and inconclusive findings on diagnostic imaging of breast (principal)
CPT/HCPCS: 77065; G0279

== ENCOUNTER → 2022-05-31 16:15 | Outpatient (CLI) | payer MEDICARE, OTHER, SELFPAY ==
--- NOTE | 2022-05-31 | DI.MG.S_ITS ---
BILATERAL DIGITAL SCREENING MAMMOGRAM 3D/2D WITH CAD: 05/31/2022 CLINICAL: Routine screening. Comparison is made to exams dated: 05/28/2021 mammogram, 05/05/2021 mammogram, 04/14/2020 mammogram, and 11/27/2018 mammogram - [facility]. There are scattered areas of fibroglandular density in both breasts (category b / 25%-50% glandular tissue). Current study was also evaluated with a Computer Aided Detection (CAD) system. No significant masses, calcifications, or other findings are seen in either breast. There has been no significant interval change. IMPRESSION: NEGATIVE There is no mammographic evidence of malignancy. A 1 year screening mammogram is recommended. Based on the Tyrer Cuzick model (a risk assessment model) the patient's lifetime risk is 0.8% and her 10 year risk is 0.0%. According to the ACR, ACS, and NCCN guidelines, an annual breast MRI exam along with mammogram is recommended if the patient's lifetime risk is 20% or greater. This exam was interpreted at Station ID: [id number]. NOTE: For mammograms, a report in lay terms will be sent to the patient. Approximately 15% of breast malignancies will not be visualized mammographically. In the management of a palpable breast mass, a negative mammogram must not discourage biopsy of a clinically suspicious lesion. Electronically Signed By: Reji castle/rebeca:05/31/2022 17:01:19 letter sent: Normal Exam ACR BI-RADS Category 1: Negative 3341F
== END ==
PROVIDERS: Family Provider Family Medicine; PCP Family Medicine; Referring Provider Family Medicine; Visit Provider Family Medicine
DX: Z12.31 Encounter for screening mammogram for malignant neoplasm of breast (principal)
CPT/HCPCS: 77063; 77067

== ENCOUNTER 2022-07-12 08:24 | Emergency (ER) | payer MEDICARE, OTHER, SELFPAY ==
[2022-07-12] VITALS (8 sets, daily range): BP systolic 165–190; BP diastolic 79–95; PULSE 55–62; RESP 11–21; TEMP 36.6; O2SAT 96–99; BMI 23.3
--- NOTE | 2022-07-12 08:39 | ED.CHESTPAIN ---
HPI - Chest Pain General Chief Complaint: Chest Pain Stated Complaint: chest pain Time Seen by Provider: 07/12/22 08:38 Source: patient Mode of arrival: Ambulatory Limitations: no limitations History of Present Illness HPI narrative: This is an 82-year-old female with history of hypertension, dyslipidemia,, hypothyroidism with complaint of chest pressure that has happened twice in the past week most recently was on Friday the . Patient states was about 4 minutes of substernal chest pressure did not radiate to neck back arms or belly. She denies any shortness of breath no diaphoresis. No nausea or vomiting. She states she has felt a little foggy occasionally or lightheaded but no syncope or vertigo or dizziness. Patient denies any new swelling in her extremities she denies any diarrhea or constipation. No new urinary symptoms. She has not had similar symptoms in the past. She has not had any medication changes. She states she has had hemorrhoidectomy no other surgeries. She believes she has had some sort of cardiac evaluation but was quite remotely and she states something was ?blood flow reversed? but does not know if it was on an echo, stress test and is unable to give any other details. She is a former smoker, drinks approximately 3 alcoholic drinks daily, no illicit. Dr. Garcia is her primary care. Related Data Home Medications Medication Instructions Recorded Confirmed amlodipine 5 mg tablet (Norvasc) 5 mg PO DAILY ##0 11/10/06 07/12/22 Vitamin B-12 1 tab PO Q DAY ##0 11/07/11 03/29/21 aspirin 81 mg tablet,delayed 81 mg PO QDAY ##0 11/07/11 07/12/22 release multivitamin 1 tab PO DAILY ##0 11/07/11 03/29/21 metoprolol tartrate 25 mg tablet 12.5 mg PO BID ##0 10/21/17 07/12/22 Fish Oil 1 cap PO DAILY 04/30/18 03/29/21 flaxseed oil 1,000 mg capsule 1 cap PO DAILY 04/30/18 03/29/21 turmeric root extract 2 cap PO DAILY 04/30/18 03/29/21 levothyroxine 25 mcg tablet 25 mcg PO DAILY 04/13/19 07/12/22 atorvastatin 10 mg tablet 10 mg PO DAILY 02/13/21 07/12/22 Allergies Allergy/AdvReac Type Severity Reaction Status Date / Time Penicillins [PENICILLINS] Allergy Severe UNCONSCIOUS Verified 03/29/21 17:47 doxycycline [DOXYCYCLINE] Allergy Intermediate JAUNDICED Verified 03/29/21 17:47 Review of Systems Review of Systems ROS Unobtainable: All systems reviewed & are unremarkable except as noted in HPI and below Patient History Medical History Asthma Chicken pox HTN (hypertension) Hypothyroid Measles Mumps Skin ulceration Surgical History Anesthesia H/O hemorrhoidectomy (~1970) S/P wisdom tooth extraction Family History Father Cancer Mother Cancer Brother Cancer Social History Smoking Status: Former smoker alcohol intake: current Smoking Status: Former smoker alcohol intake frequency: 0-2 drinks per day Substance Use Type: does not use Exam Narrative Exam Narrative: GENERAL: Alert and oriented x three, mild distress HEENT: Head normocephalic, atraumatic, EOMI, pupils reactive, face symmetric, moist mucous membranes NECK: Supple, full range of motion CARDIOVASCULAR: Regular rate and rhythm without murmurs, rubs or gallops. No JVD. No swelling bilateral lower extremities. RESPIRATORY: Breath sounds equal bilaterally, no wheezes rales or rhonchi. No tachypnea or accessory muscle use. ABDOMEN: Soft, nontender. Normoactive bowel sounds all 4 quadrants. No guarding or rebound, rigidity, no mass : No CVA tenderness EXTREMITIES: Normal range of motion, no clubbing or edema. Neurovascularly intact NEUROLOGICAL: Cranial nerves II through XII grossly intact. Moving all extremities SKIN: Warm, dry, no petechiae, no rashes or lesions. Initial Vital Signs Initial Vital Signs: Vital Signs Temperature 98 F 07/12/22 08:25 Pulse Rate 58 L 07/12/22 08:25 Respiratory Rate 18 07/12/22 08:25 Blood Pressure 181/83 H 07/12/22 08:25 Pulse Oximetry 99 07/12/22 08:25 Oxygen Delivery Method 07/12/22 08:25 Course Orders Ordered: Discontinued Medications Aspirin (Aspirin 81 Mg Chew Tab) 324 mg PO NOW ONE Stop: 07/12/22 08:47 Last Admin: 07/12/22 09:26 Dose: 324 mg Documented By: DENIS Consultations Consultation #1: Dr. Banks, primary care-they will be happy to see patient on Friday. Asked that the patient calls the office today to set up follow-up appointment and they will set up stress testing. Vital Signs Vital signs: Vital Signs - 8 hr 07/12/22 08:25 07/12/22 08:38 07/12/22 09:00 Temperature 98 F Pulse Rate 58 L 62 Respiratory Rate 18 Blood Pressure 181/83 H 173/79 H Pulse Oximetry 99 96 Oxygen Delivery Method Room Air 07/12/22 09:00 07/12/22 09:30 07/12/22 09:30 Temperature Pulse Rate 55 L 56 L Respiratory Rate 17 12 Blood Pressure 183/81 H Pulse Oximetry 98 98 Oxygen Delivery Method 07/12/22 09:32 07/12/22 09:32 07/12/22 10:00 Temperature Pulse Rate 56 L Respiratory Rate 21 Blood Pressure 168/81 H 190/83 H Pulse Oximetry 98 Oxygen Delivery Method 07/12/22 10:00 07/12/22 10:30 07/12/22 10:30 Temperature Pulse Rate 57 L 58 L Respiratory Rate 12 11 L Blood Pressure 172/80 H Pulse Oximetry 98 98 Oxygen Delivery Method MDM - Chest Pain Lab Data Result diagrams: 07/12/22 08:50 07/12/22 08:50 Labs: Lab Results 07/12/22 07/12/22 07/12/22 Range/Units 08:50 08:50 08:50 WBC 5.6 (4.5-11.0) X10^3/uL RBC 4.36 (4.0-5.2) X10^6/uL Hgb 13.6 (12.0-16.0) g/dL Hct 40.9 (36-46) % MCV 93.7 (80-100) fL MCH 31.3 (26-34) PG MCHC 33.4 (30-36) % RDW 12.6 (11.6-14.8) % Plt Count 338 (150-400) X10^3/uL Neut % (Auto) 61.0 (50-75) % Lymph % (Auto) 25.2 (25-40) % [place] % (Auto) 9.4 (3-14) % Eos % (Auto) 3.6 (2-4) % Baso % (Auto) 0.8 (0-2) % Neut # (Auto) 3400 (4548-5376) /uL Lymph # (Auto) 1400 (4966-9877) /uL [place] # (Auto) 500 (0-900) /uL Eos # (Auto) 200 (0-450) /uL Baso # (Auto) 0 (0-100) /uL PT 12.2 (10.1-12.7) SECONDS INR 1.1 (0.9-1.3) APTT 29 (26-36) SECONDS Sodium 140 (137-145) mmol/L Potassium 3.6 (3.4-5.1) mmol/L Chloride 103 (98-107) mmol/L Carbon Dioxide 26 (22-32) mmol/L BUN 16 (7-17) mg/dL Creatinine 0.56 (0.52-1.04) mg/dL Estimated GFR > 60 (>60) mL/min BUN/Creatinine Ratio 28.6 H (6-22) Glucose 111 H (80-110) mg/dL Calcium 9.4 (8.4-10.2) mg/dL Total Bilirubin 0.6 (0.2-1.3) mg/dL AST 33 (14-36) IU/L ALT 31 (<35) IU/L Alkaline Phosphatase 87 (38-126) U/L Total Creatine Kinase 60 (30-135) U/L CK-MB (CK-2) TNP CK-MB (CK-2) Rel Index TNP Troponin I < 0.012 (0.01-0.034) ng/mL NT-Pro-B Natriuret Pep 37 (<450) pg/mL Total Protein 8.4 H (6.3-8.2) g/dL Albumin 4.3 (3.5-5.0) g/dL Globulin 4.1 (1.7-4.1) g/dL Albumin/Globulin Ratio 1.0 (1.0-2.8) Lipase 65 (23-300) U/L SARS-CoV-2 (PCR) (Negative) Influenza A (RT-PCR) (NEGATIVE) Influenza B (RT-PCR) (NEGATIVE) RSV (PCR) (Negative) 07/12/22 Range/Units 09:25 WBC (4.5-11.0) X10^3/uL RBC (4.0-5.2) X10^6/uL Hgb (12.0-16.0) g/dL Hct (36-46) % MCV (80-100) fL MCH (26-34) PG MCHC (30-36) % RDW (11.6-14.8) % Plt Count (150-400) X10^3/uL Neut % (Auto) (50-75) % Lymph % (Auto) (25-40) % [place] % (Auto) (3-14) % Eos % (Auto) (2-4) % Baso % (Auto) (0-2) % Neut # (Auto) (9187-7211) /uL Lymph # (Auto) (7218-3808) /uL [place] # (Auto) (0-900) /uL Eos # (Auto) (0-450) /uL Baso # (Auto) (0-100) /uL PT (10.1-12.7) SECONDS INR (0.9-1.3) APTT (26-36) SECONDS Sodium (137-145) mmol/L Potassium (3.4-5.1) mmol/L Chloride (98-107) mmol/L Carbon Dioxide (22-32) mmol/L BUN (7-17) mg/dL Creatinine (0.52-1.04) mg/dL Estimated GFR (>60) mL/min BUN/Creatinine Ratio (6-22) Glucose (80-110) mg/dL Calcium (8.4-10.2) mg/dL Total Bilirubin (0.2-1.3) mg/dL AST (14-36) IU/L ALT (<35) IU/L Alkaline Phosphatase (38-126) U/L Total Creatine Kinase (30-135) U/L CK-MB (CK-2) CK-MB (CK-2) Rel Index Troponin I (0.01-0.034) ng/mL NT-Pro-B Natriuret Pep (<450) pg/mL Total Protein (6.3-8.2) g/dL Albumin (3.5-5.0) g/dL Globulin (1.7-4.1) g/dL Albumin/Globulin Ratio (1.0-2.8) Lipase (23-300) U/L SARS-CoV-2 (PCR) Negative (Negative) Influenza A (RT-PCR) Flu a negative (NEGATIVE) Influenza B (RT-PCR) Flu b negative (NEGATIVE) RSV (PCR) Negative (Negative) Imaging Data Chest x-ray: Radiologist's Impression: [address] [address] XRay Report Signed Patient: Christianne Jones MR#: [id number] : 1940 Acct:[id number] Age/Sex: 82 / F Date of Service: 07/12/22 Loc: ED Accession Number: [id number] ?? Procedure: XR chest 1V Ordering Provider: Liz Crawford D.O. PROCEDURE:? XR CHEST 1V ? INDICATIONS:? chest pain ? TECHNIQUE:? One view of the chest was acquired.? ? COMPARISON:? [facility], CR, CHEST 2 VIEW, 05/01/2012, 11:08.? [facility], , CHEST 1 VIEW, 11/07/2011, 9:14. ? FINDINGS:? ? Surgical changes and devices:? None.? ? Lungs and pleura:? Lungs are clear.? No pleural effusions or pneumothorax.? ? Mediastinum:? Mediastinal contours appear normal.? Heart size is normal.? ? Bones and chest wall:? No suspicious bony lesions.? Overlying soft tissues appear unremarkable.? ? IMPRESSION:? No acute cardiopulmonary abnormality. ? ? ? Dictated by: Rubin Case M.D. on 07/12/2022 at 9:19 ? ? Approved by: Rubin Case M.D. on 07/12/2022 at 9:20?? ECG Data Attestation: I personally reviewed and interpreted this ECG as follows: Prior ECG tracings: available for review Interpretation: Sinus bradycardia rate of 59 MN 148 QRS 86 and QTC of 437. Patient has T-wave inversion in V1, V2 LVH changes lateral leads, patient prior EKG from 11/08/2011 does not have inversion in V2. MDM Narrative Medical decision making narrative: This is an 82-year-old female who presents with complaint of approximately 4 minutes, 2 episodes of chest pain in the past week Friday was the last episode. Patient restart her primary care who encouraged her to come to be seen. Patient has new change in V2 but her old EKG is 10 years old. Chest x-ray, cardiac labs show show no acute change. Spoke with her primary care team who will see her Friday morning to set up stress testing patient does have risk factors but we do not have any available through the weekend she has not any chest pain Friday, no acute EKG or troponin changes here today and her last EKG was 10 years old with a single lead change. No other clear cause of her symptoms found. Return precautions discussed. Discharge Plan Departure Patient Disposition: Home Clinical Impression: Chest pain Activity Restrictions/Additional Instructions: Please follow-up with your physician for recheck. You should have stress testing at some point in the future. Please call today to set up follow-up with Dr. Garcia on Friday. I would recommend taking a baby 81 mg aspirin daily if your not still doing so. Return for new or worsening chest pain, shortness of breath, lightheadedness, passing out, persistent vomiting, new swelling in her extremities or other new or concerning symptoms. Prescriptions: No Action amlodipine [Norvasc] 5 MG tablet 5 mg PO DAILY Qty: 0 multivitamin Tablet 1 tab PO DAILY Qty: 0 aspirin 81 MG tablet,delayed release (DR/EC) 81 mg PO QDAY Qty: 0 Vitamin B-12 1 tab PO Q DAY Qty: 0 metoprolol tartrate 25 MG tablet 12.5 mg PO BID Qty: 0 flaxseed oil 1,000 mg Capsule 1 cap PO DAILY Fish Oil 1 cap PO DAILY turmeric root extract 2 cap PO DAILY levothyroxine 25 mcg tablet 25 mcg PO DAILY atorvastatin 10 mg Tablet 10 mg PO DAILY Referrals: Shaye Garcia MD [Primary Care Provider] - Visit Report Forms: Patient Portal/API
--- NOTE | 2022-07-12 08:46 | DI.RAD.S_ITS ---
PROCEDURE: XR CHEST 1V INDICATIONS: chest pain TECHNIQUE: One view of the chest was acquired. COMPARISON: [facility], , CHEST 2 VIEW, 05/01/2012, 11:08. [facility], , CHEST 1 VIEW, 11/07/2011, 9:14. FINDINGS: Surgical changes and devices: None. Lungs and pleura: Lungs are clear. No pleural effusions or pneumothorax. Mediastinum: Mediastinal contours appear normal. Heart size is normal. Bones and chest wall: No suspicious bony lesions. Overlying soft tissues appear unremarkable. IMPRESSION: No acute cardiopulmonary abnormality. Dictated by: Rubin Case M.D. on 07/12/2022 at 9:19 Approved by: Rubin Case M.D. on 07/12/2022 at 9:20
[2022-07-12 08:59] LABS: Add Manual Diff / Slide Review NO; Basophils Absolute Auto 0 /uL (0-100); Basophils Percent Auto 0.8 % (0-2); Eosinophils Absolute Auto 200 /uL (0-450); Eosinophils Percent Auto 3.6 % (2-4); Hematocrit 40.9 % (36-46); Hemoglobin 13.6 g/dL (12.0-16.0); Lymphocytes Absolute Auto 1400 /uL (1100-4500); Lymphocytes Percent Auto 25.2 % (25-40); Mean Corpuscular HGB Conc 33.4 % (30-36); Mean Corpuscular Hemoglobin 31.3 PG (26-34); Mean Corpuscular Volume 93.7 fL (80-100); Monocytes Absolute Auto 500 /uL (0-900); Monocytes Percent Auto 9.4 % (3-14); Neutrophils Absolute Auto 3400 /uL (1500-7000); Platelet Count 338 X10^3/uL (150-400); Red Blood Cell Count 4.36 X10^6/uL (4.0-5.2); Red Cell Distribution Width 12.6 % (11.6-14.8); White Blood Cell Count 5.6 X10^3/uL (4.5-11.0)
[2022-07-12 09:06] LABS: INR 1.1 (0.9-1.3); Prothrombin Time 12.2 SECONDS (10.1-12.7)
[2022-07-12 09:09] LABS: PTT Partial Thromboplastin Tim 29 SECONDS (26-36)
[2022-07-12 09:20] LABS: Alanine Aminotransferase 31 IU/L (<35); Albumin 4.3 g/dL (3.5-5.0); Alkaline Phosphatase 87 U/L (38-126); Aspartate Aminotransferase 33 IU/L (14-36); BUN Creatinine Ratio 28.6 (6-22); Bilirubin Total 0.6 mg/dL (0.2-1.3); Blood Urea Nitrogen 16 mg/dL (7-17); Calcium 9.4 mg/dL (8.4-10.2); Carbon Dioxide 26 mmol/L (22-32); Chloride 103 mmol/L (98-107); Creatine Kinase 60 U/L (30-135); Estimated Glomerular Filt Rate > 60 mL/min (>60); Globulin 4.1 g/dL (1.7-4.1); Glucose 111 mg/dL (80-110); HEMOLYSIS < 15 (0-50); Lipase 65 U/L (23-300); Potassium 3.6 mmol/L (3.4-5.1); Sodium 140 mmol/L (137-145); Total Protein 8.4 g/dL (6.3-8.2)
[2022-07-12] MEDS: ASPIRIN 81 MG CHEW TAB 324 MG PO (09:26)
[2022-07-12 09:32] LABS: NT-proBNP (BNP-Adult 18+) 37 pg/mL (<450); Troponin I < 0.012 ng/mL (0.01-0.034)
[2022-07-12 10:13] LABS: Influenza A - CEPHEID Flu A NEGATIVE (NEGATIVE); Influenza B - CEPHEID Flu B NEGATIVE (NEGATIVE); Respiratory Syncytial Virus Negative (Negative)
[2022-07-12 10:35] LABS: COVID-19 CEPHEID 4-PLEX PCR Negative (Negative)
== END 2022-07-12 11:37 | disposition home or self-care (01) ==
PROVIDERS: Emergency Provider Emergency Medicine; Family Provider Family Medicine; PCP Family Medicine
DX: R07.9 Chest pain, unspecified (principal); Z20.822 Contact with and (suspected) exposure to COVID-19; Z79.899 Other long term (current) drug therapy
CPT/HCPCS: 0241U; 36415; 71045; 80053; 82550; 83690; 83880; 84484; 85025; 85610; 85730; 93005; 93010; 99284

== ENCOUNTER → 2022-07-31 10:40 | Outpatient (CLI) | payer MEDICARE, OTHER, SELFPAY ==
--- NOTE | 2022-07-31 | DI.NM.S_ITS ---
PROCEDURE: NM SEGUN PERF SPECT REST & STR Rest and exercise myocardial perfusion SPECT with gated imaging and ejection fraction RADIOPHARMACEUTICAL: 26.2 mCi Tc-99m sestamibi IV at rest and 26.0 mCi Tc-99m sestamibi IV at peak exercise. A [id number]-fnwbomgr was performed. INDICATIONS: Other chest pain TECHNIQUE: Radiopharmaceutical was injected at peak stress test, and also at rest. SPECT images were obtained. SPECT myocardial perfusion images were displayed in short axis, horizontal long axis, and vertical long axis views. Gated images were reviewed using [employer] software. COMPARISON: None. CARDIAC STRESS: A standard Khoi treadmill exercise tolerance test was performed by the patient under the supervision of an attending staff. The patient exercised for 8 minutes and 59 seconds; 10.1 METS; functional aerobic impairment (MICHELLE) is -92%. Hemodynamic data: There is normal blood pressure and heart rate response to exercise stress. Patient achieved 101% of maximum predicted heart rate at peak exercise. Symptoms: Patient denied chest pain during exercise. EKG: No diagnostic EKG changes of ischemia; no ectopy. FINDINGS: Raw data: There is good myocardial labeling by radiotracer. No significant motion artifacts. Uqrf-ex-fykee ratio is 0.28 (normal is less than 0.38 for sestamibi tracer, and less than 0.50 for thallium tracer). Left ventricle function: Gated images demonstrate normal left ventricle wall thickening. No segmental wall motion abnormality. No transient ischemic dilation; TID is 1.03 (normal less than 1.3). The left ventricle resting end-diastolic volume is 73 mL. Left ventricle stress ejection fraction is >75%; normal values are above 45%. Myocardial perfusion: There is normal distribution of activity in the left and right ventricular myocardium. No fixed or reversible perfusion defects. IMPRESSION: Low risk study. No evidence of exercise-induced ischemia or scar on ECG or SPECT images. Hypertensive response to exercise, maximum BP 206/72. Excellent exercise capacity. Dictated by: Hortencia Sands D.O. on 08/01/2022 at 16:14 Approved by: Hortencia Sands D.O. on 08/01/2022 at 16:25
[2022-07-31 12:05] LABS: COVID19 -Nasal RAPID Negative (Negative)
== END ==
PROVIDERS: Specialist; Family Provider Family Medicine; PCP Family Medicine; Referring Provider Family Medicine; Visit Provider Family Medicine
DX: R07.89 Other chest pain (principal); Z20.822 Contact with and (suspected) exposure to COVID-19
CPT/HCPCS: 78452; 87635; 93017; A9502

== ENCOUNTER → 2022-08-27 10:40 | Outpatient (CLI) | payer MEDICARE, OTHER, SELFPAY ==
--- NOTE | 2022-08-27 | DI.RAD.S_ITS ---
PROCEDURE: XR SHOULDER RT MIN 2V INDICATIONS: Pain in right shoulder TECHNIQUE: 4 views of the shoulder were acquired. COMPARISON: None. FINDINGS: Bones: No fractures or dislocations. No suspicious bony lesions. Visualized ribs appear intact. Soft tissues: No suspicious soft tissue calcifications. Soft tissue calcification adjacent to the superolateral margin of the humeral head compatible with sequela of chronic calcific rotator cuff tendinopathy. IMPRESSION: Right shoulder without acute fracture or dislocation. Findings compatible with chronic calcific rotator cuff tendinopathy. Dictated by: Cristopher Lyon M.D. on 08/27/2022 at 16:01 Approved by: Cristopher Lyon M.D. on 08/27/2022 at 16:02
== END ==
PROVIDERS: Family Provider Family Medicine; PCP Family Medicine; Referring Provider Family Medicine; Visit Provider Family Medicine
DX: M25.511 Pain in right shoulder (principal)
CPT/HCPCS: 73030

== ENCOUNTER → 2023-06-12 08:01 | Outpatient (CLI) | payer MEDICARE, OTHER, SELFPAY ==
--- NOTE | 2023-06-12 | DI.MG.S_ITS ---
BILATERAL DIGITAL SCREENING MAMMOGRAM 3D/2D WITH CAD: 06/12/2023 CLINICAL: Routine screening. Comparison is made to exams dated: 05/31/2022 mammogram, 05/05/2021 mammogram, and 04/14/2020 mammogram - . There are scattered areas of fibroglandular density in both breasts (category b / 25%-50% glandular tissue). Current study was also evaluated with a Computer Aided Detection (CAD) system. There are benign vascular calcifications in both breasts. No significant masses, calcifications, or other findings are seen in either breast. There has been no significant interval change. IMPRESSION: BENIGN There is no mammographic evidence of malignancy. A 1 year screening mammogram is recommended. Based on the Tyrer Cuzick model (a risk assessment model) the patient's lifetime risk is 0.5% and her 10 year risk is 0.0%. According to the ACR, ACS, and NCCN guidelines, an annual breast MRI exam along with mammogram is recommended if the patient's lifetime risk is 20% or greater. This exam was interpreted at Station ID: [id number]. NOTE: For mammograms, a report in lay terms will be sent to the patient. Approximately 15% of breast malignancies will not be visualized mammographically. In the management of a palpable breast mass, a negative mammogram must not discourage biopsy of a clinically suspicious lesion. Electronically Signed By: Caroline mcneill/rebeca:06/12/2023 16:20:13 letter sent: Normal Exam ACR BI-RADS Category 2: Benign Finding(s) 3342F
== END ==
PROVIDERS: Family Provider Family Medicine; PCP Family Medicine; Referring Provider Family Medicine; Visit Provider Family Medicine
DX: Z12.31 Encounter for screening mammogram for malignant neoplasm of breast (principal)
CPT/HCPCS: 77063; 77067

== ENCOUNTER → 2023-06-20 10:33 | Outpatient (CLI) | payer MEDICARE, OTHER, SELFPAY ==
--- NOTE | 2023-06-20 | DI.RAD.S_ITS ---
PROCEDURE: XR LUMBAR SPINE 2-3V INDICATIONS: LOW BACK PAIN, RIGHT HIP PAIN TECHNIQUE: 3 views of the lumbar spine were acquired. COMPARISON: [facility], , L-SPINE MINIMUM 4 VIEWS, 12/04/2011, 9:45. FINDINGS: Bones: 5 [id number]-pat-[id number] vertebrae are present. There is normal bony alignment. No vertebral body compression fractures. No suspicious bony lesions. Disc space narrowing and throughout the exam with hypertrophic facet joints noted in the lower lumbar spine. Stable grade 1 anterior spondylolisthesis L5-S1 Soft tissues: Overlying bowel gas pattern is normal. No suspicious soft tissue calcifications. Moderate fecal debris in the right colon. Atherosclerotic calcification in the abdominal aorta noted without evidence of aneurysm. IMPRESSION: Stable degenerative disc disease and arthropathy associated with grade 1 anterior spondylolisthesis L5-S1 Approved by: Moises Munoz M.D. on 06/20/2023 at 18:37
== END ==
PROVIDERS: Family Provider Family Medicine; PCP Family Medicine; Referring Provider Family Medicine; Visit Provider Family Medicine
DX: S39.012A Strain of muscle, fascia and tendon of lower back, initial encounter (principal); M51.37 Other intervertebral disc degeneration, lumbosacral region; M47.817 Spondylosis without myelopathy or radiculopathy, lumbosacral region; M43.17 Spondylolisthesis, lumbosacral region; M25.551 Pain in right hip
CPT/HCPCS: 72100

== ENCOUNTER → 2023-09-15 12:26 | Outpatient (CLI) | payer MEDICARE, OTHER, SELFPAY ==
--- NOTE | 2023-09-15 | DI.RAD.S_ITS ---
PROCEDURE: XR TIBIA FUBULA RT 2V INDICATIONS: PAIN TECHNIQUE: 2 views of the tibia and fibula were acquired. COMPARISON: None. FINDINGS: Bones: No fractures or dislocations. No suspicious bony lesions. Soft tissues: No suspicious soft tissue calcifications or masses. IMPRESSION: No acute bony abnormality. Approved by: Moises Munoz M.D. on 09/15/2023 at 19:13
== END ==
PROVIDERS: Family Provider Family Medicine; PCP Family Medicine; Referring Provider Family Medicine; Visit Provider Family Medicine
DX: M79.604 Pain in right leg (principal); I83.90 Asymptomatic varicose veins of unspecified lower extremity
CPT/HCPCS: 73590

== ENCOUNTER → 2023-09-18 15:47 | Outpatient (CLI) | payer MEDICARE, OTHER, SELFPAY ==
--- NOTE | 2023-09-18 | DI.US.S_ITS ---
PROCEDURE: US PERIPH VENOUS LOW EXTREM RT INDICATIONS: PAIN IN LOWER RIGHT EXTREMITY TECHNIQUE: Real-time imaging, as well as color and pulse Doppler interrogation, were performed of the lower extremity deep veins from the inguinal ligament to the popliteal fossa, with documentation of the visualized calf veins. COMPARISON: None. FINDINGS: The common femoral, femoral, popliteal, and the visualized calf veins are normally compressible, and free of intraluminal thrombus. Color and pulse Doppler demonstrate normal phasic intraluminal flow. There is normal augmentation response to distal compression maneuver. IMPRESSION: No findings of lower extremity deep venous thrombosis. Dictated by: Caroline Gomez M.D. on 09/18/2023 at 17:41 Approved by: Caroline Gomez M.D. on 09/18/2023 at 17:41
== END ==
LOC: US 15:48
PROVIDERS: Family Provider Family Medicine; PCP Family Medicine; Referring Provider Family Medicine; Visit Provider Family Medicine
DX: M79.604 Pain in right leg (principal); R09.89 Other specified symptoms and signs involving the circulatory and respiratory systems; I83.90 Asymptomatic varicose veins of unspecified lower extremity
CPT/HCPCS: 93971

== ENCOUNTER → 2024-06-18 12:42 | Outpatient (CLI) | payer MEDICARE, OTHER, SELFPAY ==
--- NOTE | 2024-06-18 12:44 | DI.MG.S_ITS ---
BILATERAL DIGITAL SCREENING MAMMOGRAM 3D/2D WITH CAD: 06/18/2024 CLINICAL: Routine screening. Comparison is made to exams dated: 06/12/2023 mammogram, 05/31/2022 mammogram, 05/28/2021 mammogram, and 05/05/2021 mammogram - [facility]. There are scattered areas of fibroglandular density (category b / 25%-50% glandular tissue). Current study was also evaluated with a Computer Aided Detection (CAD) system. There are benign vascular calcifications in both breasts. No significant masses, calcifications, or other findings are seen in either breast. There has been no significant interval change. IMPRESSION: BENIGN There is no mammographic evidence of malignancy. A 1 year screening mammogram is recommended. Based on the Tyrer Cuzick model (a risk assessment model) the patient's lifetime risk is 0.3% and her 10 year risk is 0.0%. According to the ACR, ACS, and NCCN guidelines, an annual breast MRI exam along with mammogram is recommended if the patient's lifetime risk is 20% or greater. This exam was interpreted at Station ID: [id number]. NOTE: For mammograms, a report in lay terms will be sent to the patient. Approximately 15% of breast malignancies will not be visualized mammographically. In the management of a palpable breast mass, a negative mammogram must not discourage biopsy of a clinically suspicious lesion. Electronically Signed By: Rubin valverde/rebeca:06/18/2024 17:09:22 letter sent: Normal Exam ACR BI-RADS Category 2: Benign
== END ==
PROVIDERS: Family Provider Family Medicine; PCP Family Medicine; Referring Provider Family Medicine; Visit Provider Family Medicine
DX: Z12.31 Encounter for screening mammogram for malignant neoplasm of breast (principal)
CPT/HCPCS: 77063; 77067

== ENCOUNTER → 2024-08-31 16:46 | Outpatient (CLI) | payer MEDICARE, OTHER, SELFPAY ==
--- NOTE | 2024-08-31 | DI.RAD.S_ITS ---
PROCEDURE: XR KNEE RT 1TO2V INDICATIONS: KNEE PX TECHNIQUE: 2 views of the knee were acquired and more compared to a weight-bearing AP view from the same date, and interpreted in conjunction with the AP weight-bearing film. [facility], [facility], XR KNEE STANDING BI, 08/31/2024, 16:46. FINDINGS: Bones: No fractures or dislocations. Early degenerative change. Mild medial compartment joint space loss. No suspicious bony lesions. Soft tissues: No joint effusion. No suspicious soft tissue calcifications. IMPRESSION: No acute bony abnormality or significant effusion. Early degenerative change with mild medial compartment joint space loss. Dictated by: Nic Rodriguez M.D. on 09/01/2024 at 22:13 Approved by: Nic Rodriguez M.D. on 09/01/2024 at 22:14
--- NOTE | 2024-08-31 | DI.RAD.S_ITS ---
PROCEDURE: XR KNEE STANDING BI INDICATIONS: A TECHNIQUE: 1 views of the knee(s) COMPARISON: Located Within [facility], [place], XR KNEE RT 1TO2V, 08/31/2024, 16:46. Located Within [facility], [place], KNEE 3V RIGHT, 05/20/2015, 9:58. FINDINGS: Bones: A single AP weight-bearing view demonstrates mild medial compartment joint space loss on the right and joint space preservation on the left. Soft tissues: No knee joint effusions. No suspicious soft tissue calcification. IMPRESSION: Mild medial compartment joint space loss involving the right knee. Medial and lateral joint space preservation involving the left knee. Dictated by: Nic Rodriguez M.D. on 09/01/2024 at 22:14 Approved by: Nic Rodriguez M.D. on 09/01/2024 at 22:15
== END ==
PROVIDERS: Family Provider Family Medicine; PCP Family Medicine; Referring Provider Family Medicine; Visit Provider Family Medicine
DX: M25.561 Pain in right knee (principal)
CPT/HCPCS: 73560; 73565

== ENCOUNTER → 2024-09-13 14:47 | Outpatient (CLI) | payer MEDICARE, OTHER, SELFPAY ==
--- NOTE | 2024-09-13 14:48 | DI.ECHO.S_ITS ---
[facility] : : [id number] : : [place] : : [id number] : : Phone: [phone] Echocardiogram Report + + :Name: ANTONY GORDON Study Date: 09/13/2024 Height: 64 in : :[facility] ReadingLocation: Weight: 140 lb : : Gender: Female BSA: 1.7 m2 : :: 1940 Age: 84 yrs BP: 159/83 mmHg: :Reason For Study: CARDIAC MURMUR : :Ordering Physician: HANY, : :UNA Performed By: Compa Lynn : :Referring: UNA LEACH : + + Interpretation Summary 1) Normal left ventricular thickness, size, wall motion, and systolic function (EF 60-65%). 2) Normal right ventricular size and function. 3) No significant valvular abnormalities. 4) No prior Echo available for comparison. Procedure: A two-dimensional transthoracic echocardiogram with color flow and Doppler was performed. The study quality was technically good. There is no prior echocardiogram noted for this patient. The patient was in normal sinus rhythm during the exam. Left Ventricle: The left ventricle is normal in size. Left ventricular wall thickness is mildly increased. There is no ventricular septal defect visualized. The ejection fraction is estimated to be 60-65%. There are no focal wall motion abnormalities. Diastolic parameters suggest a relaxation abnormality of the left ventricle, consistent with probable normal filling pressures. Right Ventricle: The right ventricle is normal in size and function. Atria: The left atrium is moderately dilated. Right atrial size is normal. There is no Doppler evidence for an atrial septal defect. Mitral Valve: The mitral valve leaflets are mildly calcified. There is mild mitral annular calcification. There is trace mitral regurgitation. Aortic Valve: The aortic valve is trileaflet. The aortic valve is mildly calcified. The aortic valve opens well. There is no aortic valve stenosis. There is trace aortic regurgitation. Tricuspid Valve: The tricuspid valve leaflets are thin and pliable. There is mild tricuspid regurgitation. The right ventricular systolic pressure is estimated to be at least 33 mmHg based on an estimated right atrial pressure of 3 mm Hg. Pulmonic Valve: The pulmonic valve leaflets are thin and pliable; valve motion is normal. There is trace pulmonic regurgitation. Great Vessels: The aortic root is normal size. The dimensions of the ascending aorta are normal. The pulmonary artery is normal size. The IVC is of normal diameter and collapses greater than 50% with a sniff. This suggests a low right atrial pressure of 3 mm Hg. Pericardium/ Pleura There is no pericardial effusion. There is no pleural effusion. MMode/2D Measurements & Calculations LVIDd: 4.6 cm LVOT diam: 1.9 cm LVIDs: 2.4 cm Ao root diam: 3.1 cm FS: 47.6 % asc Aorta Diam: 3.2 cm EPSS: 0.43 cm IVSd: 1.2 cm LVPWd: 0.93 cm LV luke. diameter/BSA (cm/m^2): 2.7 LV sys. diameter/BSA (cm/m^2): 1.4 LA A2 area: 19.4 cm2 RA long axis: 4.5 cm LA A4 area: 18.0 cm2 RA area: 14.1 cm2 LA length (vol): 5.1 cm RA vol: 37.2 ml LA vol: 58.3 ml RA : 22.1 ml/m2 LA vol index: 34.7 ml/m2 IVC diam: 1.5 cm RVD1 (basal): 3.7 cm RVD2 (mid): 2.3 cm TAPSE: 3.4 cm Doppler Measurements & Calculations Ao V2 max: 189.1 cm/sec LVOT Max Kieran: 127.4 cm/sec Ao V2 mean: 121.9 cm/sec LV V1 max P.5 mmHg Ao max P.3 mmHg LV V1 VTI: 33.2 cm Ao mean P.9 mmHg LIVE(I,D): 2.2 cm2 Ao V2 VTI: 44.5 cm LIVE(V,D): 2.0 cm2 sev ratio: 0.74 LIVE indexed to BSA (cm^2/m^2): 1.3 MV E max kieran: 74.0 cm/sec TR max kieran: 274.4 cm/sec MV A max kieran: 128.4 cm/sec TR max P.1 mmHg MV E/A: 0.58 PA V2 max: 73.7 cm/sec Med Peak E' Kieran: 5.5 cm/sec PA V2 mean: 55.4 cm/sec E/E' med: 13.6 PA mean P.3 mmHg Lat Peak E' Kieran: 6.5 cm/sec PA pr(Accel): 29.3 mmHg E/E' lat: 11.4 E/e' average: 12.5 MV dec time: 0.29 sec SVLVOT): 96.3 ml Reading Physician:04:08 PM
== END ==
PROVIDERS: Family Provider Family Medicine; PCP Family Medicine; Referring Provider Family Medicine; Visit Provider Family Medicine
DX: I08.3 Combined rheumatic disorders of mitral, aortic and tricuspid valves (principal); R01.1 Cardiac murmur, unspecified
CPT/HCPCS: 93306

== ENCOUNTER → 2025-07-04 17:30 | Outpatient (CLI) | payer MEDICARE, OTHER, SELFPAY ==
--- NOTE | 2025-07-04 17:32 | DI.MG.S_ITS ---
MM screening mammo BI: 07/04/2025. BI-RADS: 1
== END ==
LOC: MAMMO 17:31
PROVIDERS: Family Provider Family Medicine; PCP Family Medicine; Referring Provider Family Medicine; Visit Provider Family Medicine
DX: Z12.31 Encounter for screening mammogram for malignant neoplasm of breast (principal); Z80.41 Family history of malignant neoplasm of ovary
CPT/HCPCS: 77063; 77067